=== PATIENT | female | born 1990 | race Caucasian/White ===

== ENCOUNTER → 2019-02-19 | Outpatient (CLI) | payer BC | LOC: COL.LAB 11:26 | DX: G43.909 Migraine, unspecified, not intractable, without status migrainosus (principal); R53.82 Chronic fatigue, unspecified ==

== ENCOUNTER 2020-02-02 04:45 | Outpatient (CLI) | payer OTHER ==
[~2020-02-02] VITALS: Ht 175.3 cm; Wt 70.9 kg
[2020-02-02] VITALS (9 sets, daily range): BP systolic 113–139; BP diastolic 56–78; PULSE 64–83; TEMP 97.5–97.9
--- NOTE | 2020-02-02 04:35 | NUR ---
HERE AFTER HOME WITH [employer] AT 0205.HERE FOR EXAM OF LACERATIONS PER REQUEST OF [employer]IL[employer]. VSS PAD WITH MINIMAL LOCHIA,FUNDUS FIRM AU. MINIMAL PAIN. VISITS ON PHONE . NURSED BABY AFTER DELIVERY. VOIDED - NO DIZZNESS. 0445 DR XIE CALLED FROM HOME TO EXAMINE.
--- NOTE | 2020-02-02 05:00 | NUR ---
DR XIE HERE- IN FOOTRESTS FOR EXAM. REPAIR OF 3RD DEGREE STARTS WITH LOCAL ANESTHESIA. 0530 TOLERATES REPAIR WELL WITH 1 % LIDOCAINE.
--- NOTE | 2020-02-02 06:10 | NUR ---
REPAIR OF DEEP 3RD DEGREE LAC COMPLETE . SPONGE OCUNT CORRECT. VAG PACKING IN PLACE VSS
--- NOTE | 2020-02-02 06:43 | NUR ---
[facility] [address] CATH 1200 AFTER DEL
--- NOTE | 2020-02-02 07:10 | NUR ---
Pt sleeping, motrin given po, see EMAR. Vaginal packing removed. Fundus firm, minimal bleeding noted. New pads and ice pack in place. Will continue to monitor and evulate in 1 hour.
--- NOTE | 2020-02-02 08:15 | NUR ---
Vaginal bleeding WNL, minimal at this time. Fundus firm. Pt up to bathroom, voids 500cc. Pericare instructions given, pt verbalizes understanding. Discharge instructions given. G to call and schedule a f/u appointment. 0840:Pt to personal vehicle via wheelchair.
== END 2020-02-02 08:40 | disposition home or self-care (01) ==
LOC: LDRO 04:45
DX: S31.41XA Laceration without foreign body of vagina and vulva, initial encounter (principal); Z37.9 Outcome of delivery, unspecified

== ENCOUNTER → 2020-04-13 | Outpatient (CLI) | payer OTHER | LOC: ZCOL.LAB 18:04 | DX: J02.9 Acute pharyngitis, unspecified (principal); R51 Headache; Z20.828 Contact with and (suspected) exposure to other viral communicable diseases ==